=== PATIENT | male | born 1955 | race Caucasian/White ===

== ENCOUNTER 2020-04-05 18:15 | Emergency (ER) | payer SELFPAY ==
[~2020-04-05] VITALS: Ht 170.2 cm; Wt 70.8 kg
[2020-04-05 18:18] VITALS: Ht 170.2 cm; Wt 70.8 kg
[2020-04-05 19:56] LABS: BASOPHIL % 0.3 % (0-2); PLATELET COUNT 178 x10^3mcL (130-400); RED CELL DISTRIBUTION WIDTH 12.6 % (11.5-14.5)
[2020-04-05 20:33] LABS: CALCIUM 9.1 mg/dL (8.5-10.1); CARBON DIOXIDE 29.3 mmol/L (21-32); CHLORIDE SERUM 103 mmol/L (98-107); GFR1 > 60 mL/min; GLUCOSE SERUM 96 mg/dL (74-106); POTASSIUM SERUM 4.4 mmol/L (3.5-5.1); SODIUM SERUM 139 mmol/L (136-145)
[2020-04-05 20:38] LABS: ALKALINE PHOSPHATASE 121 U/L (46-116); ALT/SGPT 82 U/L (16-63); AST/SGOT 49 U/L (15-37); BILIRUBIN TOTAL 0.53 mg/dL (0.20-1.00)
== END 2020-04-05 23:17 | disposition left against medical advice (07) ==
LOC: ED 18:15
PROVIDERS: Emergency Medicine
DX: Z53.21 Procedure and treatment not carried out due to patient leaving prior to being seen by health care provider (principal)